=== PATIENT | male | born 1950 | race Caucasian/White ===

== ENCOUNTER → 2019-12-10 11:53 | Outpatient (BNVA) | payer MEDICARE, SELFPAY | PROVIDERS: Family Provider Nurse Practitioner; PCP Nurse Practitioner; Visit Provider Nurse Practitioner Family | DX: I50.9 Heart failure, unspecified (principal); R53.83 Other fatigue; Z13.6 Encounter for screening for cardiovascular disorders; R32 Unspecified urinary incontinence | CPT/HCPCS: 80053; 80061; 81000; 82248; 84443; 85025 ==